=== PATIENT | female | born 1995 | race Caucasian/White ===

== ENCOUNTER 2023-11-11 13:31 | Outpatient (AMB) | payer OTHER, SELFPAY ==
--- NOTE | 2023-11-11 13:35 | MHC.OFFVIS ---
Vital Signs 11/11/23 13:42 Height 5 ft 5 in Weight 179 lb BMI 29.8 BP 110/70 Intake Visit Reasons: New patient Annual/ Do not Rs Behavior Support Specialist: Behavior Support Specialist Present (Padmini) Allergies amoxicillin Allergy (Unknown, Verified 11/11/23 13:45) Unknown Penicillins Allergy (Unknown, Verified 11/11/23 13:45) Unknown HPI Comments Details: She is a premenopausal woman presenting for new patient annual examination. Doing well with concerns: History of frequent UTIs currently taking you Uqura as a gpnv-kqv-zommpwx preventative, reports dysuria today. Concerns regarding low libido.. She tries to eat healthy and stays active with exercise. Monthly bleeding noted, has a Mirena IUD in since 2014. Has used the IUD since age 12 due to of starting Accutane. Menarche age [age], she does not remember her cycle history from that timeframe. Desires to have it removed today. Uses natural family planning w/a Oura ring. She denies vaginal itching and irritation. STI screening offered; she accepts. Denies family history of ovarian or colon cancer. FH breast cancer. Last pap smear 2019, negative. PFS Medical History ADHD Depression with anxiety Seasonal allergies Family History Paternal Grandmother History of breast cancer Social History Alcohol intake: current Alcohol intake frequency: holidays/special occasions only Patient Tobacco Use Status: Never used Tobacco Sexual orientation: Straight/Heterosexual Gender identity: Female Female Reproductive History Menstrual Age of Menarche: 9 Total pregnancies: 0 Date of last pap smear: 05/18/19 (neg) Review of Systems Const All systems reviewed & are unremarkable except as noted in HPI and below Reports as per HPI Eyes Reports no additional complaints ENT Reports no additional complaints Card Reports no additional complaints Resp Reports no additional complaints GI Reports as per HPI and Reports no additional complaints Reports as per HPI Musc Reports no additional complaints Skin/Breast Reports as per HPI Neuro Reports no additional complaints Psych Reports no additional complaints Endo Reports no additional complaints Franky/Lymph Reports no additional complaints Aller/Immun Reports no additional complaints Physical Exam Vital Signs: Last Vital Signs BP 110/70 11/11/23 13:42 BMI result Body Mass Index 29.8 Const General: cooperative, healthy appearing, no acute distress, well developed and alert Orientation/consciousness: patient oriented x3 HEENT Head: Yes normal to inspection Eyes General: appearance normal, both eyes and all related structures Neck Neck: Yes normal visual inspection Thyroid: Thyroid normal Chest Chest palpation & inspection: normal inspection of the chest and other (no puckering, dimpling, peau de orange, retraction, discharge, masses) Breast/axilla inspection: normal inspection of the breasts Breast/axilla palpation: normal palpation of the breasts Resp Effort & Inspection: normal respiratory effort GI Inspection: Yes normal to inspection Palpation (GI): Soft to palpation Rectal Exam - Female: deferred General: Yes bladder normal to palpation External Female Exam: normal external appearance and normal appearance of the urethra Speculum Exam - Vagina: normal appearance of the vagina, normal palpation, normal vaginal discharge and vaginal bleeding Speculum Exam - Cervix: normal appearance of the cervix, normal palpation and Other cervical findings present (IUD strings at the os) Bimanual exam- vagina & uterus: normal bimanual exam, normal palpation, uterine size normal, bladder normal to palpation, normal palpation and non-tender Bimanual Exam- Adnexa, other: no masses OB/external & speculum: vaginal bleeding Skin General skin exam: no rashes or lesions noted Rashes: no rashes Neuro General: patient oriented x3 Cognition (Neuro): normal cognition Extrem General: Yes normal to inspection Psych Attitude: cooperative Thought process: Normal thought process present Office Procedures Contraception Insert/Removal Details Details: She was counseled regarding the removal of her IUD. She was consented for the procedure along with anticipatory guidance for the removal and the consents form was signed. She desires to proceed with the IUD removal. She was consented for the IUD insertion and has signed the consent form. All questions were answered. IUD Removal Procedure: The patient was placed in the dorsal lithotomy position. A speculum was inserted vaginally and the cervix and strings were visualized at the os. A ring forcep was utilized, and the patient was asked to give a deep cough while the strings were grasped and gently tugged at the same time, removing the IUD device intact. Minimal bleeding was observed. All of the equipment was removed. The patient tolerated the procedure well and left the office in good condition. IUD Removal Information: You may have light bleeding for several days, tapering off to a brown or pink color. Mild cramping after removal is common. If not allergic, you may take an over the counter mild analgesic for the discomfort, such as Tylenol or Advil (use dosing and frequency per the manufacturers recommendations). Call the office if you experience: fever (over 100.4), flu like symptoms, abdominal or pelvic pain, foul smelling discharge or heavy bleeding. If not planning for a future , another form of control is recommended. Use of condoms for prevention of is also recommended, if indicated. This note is constructed using voice recognition software. While every effort has been made to ensure accuracy, accounts receivable collector errors may have been included. [id number] - Removal Results AMB Test Urine AMB Test Urine Negative Last Edit by Luz Maria Palumbo [facility] on 11/11/23 14:44 AMB Urinalysis, Automated UA Leukoctes 0 Jerry/uL Last Edit by Luz Maria Palumbo Esther on 11/11/23 14:44 UA Nitrite Positive Last Edit by Luz Maria Palumbo [facility] on 11/11/23 14:44 UA Urobilinogen 0 mg/dL Last Edit by Luz Maria Palumbo [facility] on 11/11/23 14:44 UA Protein 0 mg/dL Last Edit by Luz Maria Palumbo [facility] on 11/11/23 14:44 UA pH 5.5 Last Edit by Luz Maria Palumbo [facility] on 11/11/23 14:44 UA Blood 1 Owen/uL Last Edit by Luz Maria Palumbo [facility] on 11/11/23 14:44 UA Specific Goodells 1.020 Last Edit by Luz Maria Palumbo [facility] on 11/11/23 14:44 UA Ketone Positive Last Edit by Luz Maria Palumbo Esther on 11/11/23 14:44 UA Bilirubin 0 mg/dL Last Edit by Luz Maria Palumbo [facility] on 11/11/23 14:44 UA Glucose 0 mg/dL Last Edit by Luz Maria Palumbo [facility] on 11/11/23 14:44 Results Reviewed Results Reviewed: Laboratory Last Values Urine pH (Auto) 5.5 11/11/23 14:40 Specific Goodells (Auto) 1.020 11/11/23 14:40 Urine Protein (Auto) 0 mg/dL 11/11/23 14:40 Glucose (UA)(Auto) 0 mg/dL 11/11/23 14:40 Urine Ketones (Auto) Positive 11/11/23 14:40 Urine Blood (Auto) 1 Owen/uL 11/11/23 14:40 Urine Nitrite (Auto) Positive 11/11/23 14:40 Urine Bilirubin (Auto) 0 mg/dL 11/11/23 14:40 Urine Urobilinogen (Auto) 0 mg/dL 11/11/23 14:40 Leukocyte Esterase (Auto) 0 Jerry/uL 11/11/23 14:40 Tst Clinic Negative 11/11/23 14:40 Assessment & Plan Assessment & Plan (1) Encounter for well woman exam with routine gynecological exam: Code(s): Z01.419 - Encounter for gynecological examination (general) (routine) without abnormal findings Category: Medical (2) Encounter for IUD removal: Code(s): Z30.432 - Encounter for removal of intrauterine contraceptive device (3) Dysuria: Code(s): R30.0 - Dysuria Plan Discussed: Current recommendations for pap smears per ASCCP guidelines. Breast awareness and periodic breast exams. Maintain a healthy lifestyle including a well balanced diet and routine exercise. Reviewed control options including nonhormonal. She would like to monitor her cycles for now and may consider another IUD in the future. Positive nitrates, counseled about UTI, encouraged increase fluids, avoid bladder irritants, Rx sent in for Macrobid, wait for urine culture for plan of care. See notes for IUD removal. Schedule return to the office visit to discuss low libido concerns. Patient verbalizes understanding and agrees to the plan of care. She was given opportunity to ask questions and all questions were answered to the best of my ability. RTO in one year for annual pay station department manager examination. This note is constructed using voice recognition software. While every effort has been made to ensure accuracy, accounts receivable collector errors may have been included. Orders: Orders Bacterial Vaginosis Panel Today R10.2 - Pelvic and perineal pain PAP + HPV E6/E7 rfx 18/45 Today Z01.419 - Encounter for gynecological examination (general) (routine) without abnormal findings AMB HCG Urine Test Today Z32.02 - Encounter for test, result negative AMB Urinalysis Automated Today R30.0 - Dysuria Urine Culture Today R30.0 - Dysuria CT NG by PCR Today R10.2 - Pelvic and perineal pain Medications: New nitrofurantoin monohyd/m-cryst 100 mg (Macrobid) must administer with a meal/food 100 mg PO BID PRN 10 caps 0RF UTI 5 days Coding Level of Care Code New Pt Prev Care 18-39yr(19929 Diagnoses Encounter for well woman exam with routine gynecological exam Z01.419 Encounter for IUD removal Z30.432 Dysuria R30.0 CPT Codes Details - Contraception: 44186 - Removal ([id number]) Comment Add modifier for IUD removal
[2023-11-11 13:42] VITALS: BP 110/70; BMI 29.8
== END 2023-11-11 14:49 | disposition home or self-care (01) ==
PROVIDERS: Visit Provider Advanced Practice Midwife
DX: Z01.419 Encounter for gynecological examination (general) (routine) without abnormal findings (principal); Z30.432 Encounter for removal of intrauterine contraceptive device; R30.0 Dysuria; Z32.02 Encounter for pregnancy test, result negative
CPT/HCPCS: 58301; 99385

== ENCOUNTER 2023-11-11 13:31 | Outpatient (REF) | payer OTHER, SELFPAY ==
[2023-11-12 04:16] LABS: CT PCR NOT DETECTED (Not Detect.); NG PCR NOT DETECTED (Not Detect.)
[2023-11-12 09:50] LABS: Bacterial Vaginosis PCR POSITIVE (Negative); Candida Group PCR NOT DETECTED (Not Detect); Candida glab krusei PCR NOT DETECTED (Not Detect); Trichomonas vaginalis PCR NOT DETECTED (Not Detect)
[2023-11-13 15:33] LABS: HPV mRNA E6/E7 Not Detected (Not Detected)
== END 2023-11-11 13:32 | disposition home or self-care (01) ==
LOC: HO.LAB 13:31
PROVIDERS: Visit Provider Advanced Practice Midwife
DX: Z01.419 Encounter for gynecological examination (general) (routine) without abnormal findings (principal); Z11.51 Encounter for screening for human papillomavirus (HPV); R10.2 Pelvic and perineal pain; R30.0 Dysuria
CPT/HCPCS: 0352U; 36415; 58301; 81003; 81025; 87086; 87088; 87186; 87491; 87591; 87624; 88175

== ENCOUNTER 2023-11-11 14:40 | Outpatient (REF) | payer OTHER, SELFPAY | END 2023-11-11 14:41 | disposition home or self-care (01) | LOC: HO.LNP 14:40 | PROVIDERS: Visit Provider Advanced Practice Midwife | DX: Z13.89 Encounter for screening for other disorder (principal) ==

== ENCOUNTER 2024-11-16 12:59 | Outpatient (AMB) | payer OTHER, SELFPAY ==
[2024-11-16 13:04] VITALS: BP 108/66; BMI 29.0
--- NOTE | 2024-11-16 13:04 | MHC.OFFVIS ---
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 Information Interpreted: non-clinical & clinical Hospice Consultant: Hospice Consultant Present (rich) Accompanied by: Self / Same As Patient Allergies amoxicillin Allergy (Unknown, Verified 11/16/24 13:07) Unknown Penicillins Allergy (Unknown, Verified 11/16/24 13:07) Unknown Medication List - Last Reconciled 11/16/24 by Myra Hernandez LPN dextroamphetamine sulfate 5 mg PO BID escitalopram oxalate 20 mg PO DAILY levocetirizine 5 mg PO DAILY lorazepam 0.5 mg PO BID PRN montelukast 10 mg PO BEDTIME Is last menstrual period known: Yes Last menstrual period: 11/09/24 Post menopausal: No Patient : No Do you need a note to return to daycare/school/sports/work: No HPI Comments Details: Patient is a premenopausal woman presenting for annual examination. Transportation Engineering Technician concerns: none. Her wedding is next month. Regular monthly menses, spaced up to 40d, most are 26-28d. Currently is sexually active, uses condoms. She denies vaginal itching or irritation. STI screening offered; she declines. She tries to eat healthy and stays active with exercise. FH colon cancer. Last pap smear 2023, negative. PFS Medical History ADHD Depression with anxiety Seasonal allergies Family History Paternal Grandmother History of breast cancer Social History Household Members: Significant Other Housing: House Alcohol intake: current Alcohol intake frequency: holidays/special occasions only Patient Tobacco Use Status: Never used Tobacco Sexual orientation: Straight/Heterosexual Gender identity: Female Female Reproductive History Menstrual Age of Menarche: 9 Date of last menstrual period: 11/09/24 control method: condoms Total pregnancies: 0 Number of Living Children: 0 Date of last pap smear: 11/17/19 History of abnormal pap smear: No History of STI: No History of abnormal mammogram: No Review of Systems Const All systems reviewed & are unremarkable except as noted in HPI and below Reports as per HPI Eyes Reports no additional complaints ENT Reports no additional complaints Card Reports no additional complaints Resp Reports no additional complaints GI Reports as per HPI and Reports no additional complaints Reports as per HPI Musc Reports no additional complaints Skin/Breast Reports as per HPI Neuro Reports no additional complaints Psych Reports no additional complaints Endo Reports no additional complaints Franky/Lymph Reports no additional complaints Aller/Immun Reports no additional complaints Physical Exam Vital Signs: Last Vital Signs BP 108/66 11/16/24 13:04 BMI result Body Mass Index 29.0 Const General: cooperative, healthy appearing, no acute distress, well developed and alert Orientation/consciousness: patient oriented x3 HEENT Head: Yes normal to inspection Eyes General: appearance normal, both eyes and all related structures Neck Neck: Yes normal visual inspection Thyroid: Thyroid normal Chest Chest palpation & inspection: normal inspection of the chest and other (no puckering, dimpling, peau de orange, retraction, discharge, masses) Breast/axilla inspection: normal inspection of the breasts Breast/axilla palpation: normal palpation of the breasts Resp Effort & Inspection: normal respiratory effort GI Inspection: Yes normal to inspection Palpation (GI): Soft to palpation Rectal Exam - Female: deferred General: Yes bladder normal to palpation External Female Exam: normal external appearance and normal appearance of the urethra Speculum Exam - Vagina: normal appearance of the vagina, normal palpation and normal vaginal discharge Speculum Exam - Cervix: normal appearance of the cervix and normal palpation Bimanual exam- vagina & uterus: normal bimanual exam, normal palpation, uterine size normal, bladder normal to palpation, normal palpation and non-tender Bimanual Exam- Adnexa, other: no masses Skin General skin exam: no rashes or lesions noted Rashes: no rashes Neuro General: patient oriented x3 Cognition (Neuro): normal cognition Extrem General: Yes normal to inspection Psych Attitude: cooperative Thought process: Normal thought process present Assessment & Plan Assessment & Plan (1) Encounter for well woman exam with routine gynecological exam: Code(s): Z01.419 - Encounter for gynecological examination (general) (routine) without abnormal findings Category: Medical Plan Discussed: Current recommendations for pap smears per ASCCP guidelines. Breast awareness and periodic breast exams. Maintain a healthy lifestyle including a well balanced diet and routine exercise. Consider starting multivitamins with folic acid for the prevention of neural tube defects. If late for menses do a home test if positive report to the hospital for care. Patient verbalizes understanding and agrees to the plan of care. She was given opportunity to ask questions and all questions were answered to the best of my ability. 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 This note is constructed using voice recognition software. While every effort has been made to ensure accuracy, vice president residential solar sales errors may have been included. Coding Level of Care Code Est Pt Prev Care 18-39y(63682) Diagnoses Encounter for well woman exam with routine gynecological exam Z01.419
--- OUTSIDE RECORDS SUMMARY | 2024-11-16 13:34 | XMS_ITS | Clinical Summary ---
Author Organization [facility] ity Address [address] [place] [address] Care Team Providers Care Surgical Garment Assembly Supervisor Name Role Phone Renaldo Michael MD Primary Care Provider Surgical History Surgery Date Site/Laterality Comments OTHER SURGICAL HISTORY PROCEDURE: DENIES PREVIOUS SURGERY Family History Medical History Relation Name Comments Diabetes Maternal Grandfather Breast cancer Paternal Grandmother Ovarian cancer Neg Hx Uterine cancer Neg Hx Relation Name Status Comments Maternal Grandfather Paternal Grandmother Social History Tobacco Use Types Packs/Day Years Used Date Smoking Tobacco: Never Smokeless Tobacco: Never Alcohol Use Standard Drinks/Week Comments Yes 0 (1 standard drink = 0.6 oz pur e alcohol) Comments Unknown Sex and Gender Information Value Date Recorded Sex Assigned at Not on file Legal Sex Female 10:01 AM EST Gender Identity Not on file Sexual Orientation Not on file Obstetrics History Plan of Treatment Health Maintenance Due Date Last Done Comments DTaP,Tdap,and Td Vaccines (1 - Tdap) 2012 Hepatitis B Vaccines (1 of 3 - 19+ 3-dose series) 2012 Cervical Cancer Screening: P ap Smear 05/16/2022 05/16/2019 COVID-19 Vaccine (1 - 2023-2 5 season) 2023 Depression Screening 04/13/2024 Influenza Vaccine (#1) 2024 HIB Vaccines Aged Out No longer eligi ble based on patient's age to complete this topic HPV Vaccines Aged Out No longer eligi ble based on patient's age to complete this topic Hepatitis A Vaccines Aged Out No long er eligible based on patient's age to complete this topic IPV Vaccines Aged Out No longer eligi ble based on patient's age to complete this topic MMR Vaccines Aged Out No longer eligi ble based on patient's age to complete this topic Meningococcal ACWY Vaccine Aged Out N o longer eligible based on patient's age to complete this topic Meningococcal B Vaccine Aged Out No l onger eligible based on patient's age to complete this topic Pneumococcal Vaccine: Pediat rics (0 to 5 Years) and At-Risk Patients (6 to 49 Years) Aged Out No longer eligi ble based on patient's age to complete this topic RSV Immunization Patients Un amalia 20 months Aged Out No longer eligible b ased on patient's age to complete this topic Varicella Vaccines Aged Out No longer eligible based on patient's age to complete this topic Procedures Procedure Name Priority Date/Time Associated Diagnosis Comments PAP SMEAR Routine 05/16/2019 from Last 3 Months or Most Recently Relevant to Health Maintenance Results * Pap smear (05/16/2019) 05/16/2019 Narrative HISTORICAL TESTING LAB RESULTING AGENCY - 05/18/2019 1:56 PM EST [id number] THINPREP PAP, IMAGED: NEGATIVE FOR SQUAMOUS INTRAEPITHELIAL LESION AND MALIGNANCY . TAVIA PIERRE(ASCP) (CASE ELECTRONICALLY SIGNED 05 18 2019) ADEQUACY: SATISFACTORY ENDOCERVICAL/TRANSFORMATION ZONE COMPONENT PRESENT. SOURCE: THINPREP PAP HPV IF ASCUS, CERVICAL, IMAGED CLINICAL INFORMATION: HPV IF DIAGNOSIS OF ASCUS. NO LMP RECORDED, PATIENT IS NOT CURRENTLY HAVING PERIODS DUE TO IUD, [Z12.4, Z01.419] Shirley CHAVEZ LAB CYTOLOGY ORDERABLES Final Result HISTORICAL TESTING LAB RESULTING AGENCY from Last 3 Months or Most Recently Relevant to Health Maintenance Care Teams Surgical Garment Assembly Supervisor Relationship Specialty Start Date End Date Renaldo Michael MD [address] [place] [phone] PCP - General Internal Medicine 07/21/13
--- OUTSIDE RECORDS SUMMARY | 2024-11-16 13:34 | XMS_ITS | Clinical Summary ---
Author Organization [facility] Address [address] [place] [address] Phone Care Team Providers Care Medical Services Manager Name Role Phone Rafia Ro Primary Care Provider Tawanda Simons MD Unavailable [phone] Allergies Active Allergy Reactions Criticality Noted Date Comments Amoxicillin 02/21/2021 Fontanelle And Derivatives Rash Low 06/03/2021 Penicillins 02/21/2021 Sulfa (Sulfonamide Antibiotics) 02/11 Tomato Rash Low 08/30/2013 Medications dextroamphetam ine-amphetamin e (ADDERALL) 5 mg Tab Take 1 tablet by mouth daily. Active montelukast (SINGULAIR) 10 mg tablet Take 10 mg by mouth nightly at bedtime. at bedtime. 02/14/20 21 Active levonorgestrel (MIRENA UTRN) by Intrauterine route. Active levocetirizine (XYZAL) 5 MG tablet daily. Active methylphenidat e HCl (RITALIN) 5 MG tablet methylphenidate 5 mg tablet Active MULTIVITAMIN ORAL daily. Active escitalopram oxalate (LEXAPRO) 5 MG tablet TAKE 1 TABLET BY MOUTH EVERY DAY DIRECTED FOR ANXIETY Active ipratropium (ATROVENT) 42 mcg (0.06 %) nasal spray 2 sprays in each nostril twice a day 06/06/19 25 Active naproxen (NAPROSYN) 500 MG tablet Take 1 tablet (500 mg total) by mouth 2 (two) times a day with meals. 20 tablet 09/14/19 25 Active cyclobenzaprin e (FLEXERIL) 10 MG tablet Take 1 tablet (10 mg total) by mouth 2 (two) times a day as needed (neck pain). 20 tablet 09/14/19 25 Active Active Problems Problem Noted Date Diagnosed Date Generalized anxiety disorder 06/15/2024 Moderate persistent asthma 04/17/2023 Hyperlipidemia 01/30/2022 Recurrent major depressive episodes, moderate Abnormal weight loss 08/30/2013 Acne 08/30/2013 Allergic rhinitis 08/30/2013 Attention deficit hyperactivity disorder 014 Gastroesophageal reflux disease 08/30/2013 Irregular periods 11/23/2008 Overview (09/13/2024): RECORDED 11/23/2008 9:15AM BY JUAN GONZALEZ, JABARI/ADDENDUM Encounters Date Type Department Care Team Description 09/13/2024 8:50 AM EDT Office Visit [facility] [address] [address] Patience Tony, PUBLICATION SPECIALIST Strain of cervical portion of right trapezius muscle (Primary Dx) from Last 3 Months Immunizations Immunization Administration Dates Next Due DTaP 03/13/1995, 4,1993,10/11 [id number] FORMULATION 05/14/2009 HPV,quadrivalent 04/15/2007,12/07/2006, 7 Hepatitis B 06/11/1994,1993,1993 Hib,HbOC 12/12/1994 INFLUENZA, SPLIT VIRUS, TRIV ALENT W/ PRESERVATIVE IM 12/09/2011,02/17/2011 IPV 12/12/1994,1993,1993 Influenza Quadrivalent Prese rvative Free IM 01/10/2021,12/20/2019,02/02/2018 MMR 09/19/2003,12/19/1994 Meningococcal MPSV4 09/30/2005 Tdap 01/10/2021,10/11/2007 Varicella 12/09/2011,09/26/2011 Social History Tobacco Use Types Packs/Day Years Used Date Smoking Tobacco: Never Smokeless Tobacco: Never Education Answer Date Recorded Are you interested in more education? Not on stacey e 08/08/2022 Are you concerned about learning? Not on file 08/08/2022 No 08/08/2022 No 08/08/2022 Digital Access Answer Date Recorded No 09/05/2022 No 09/05/2022 Reliable internet access at home? Not on file 09/05/2022 Device with a working camera? Not on file Comments Unknown Sex and Gender Information Value Date Recorded Sex Assigned at Not on file Legal Sex Female 8:55 PM EDT Gender Identity Not on file Sexual Orientation Not on file Last Filed Vital Signs Vital Sign Reading Time Taken Comments Blood Pressure 105/73 09/13/2024 9:37 AM EDT Pulse 63 09/13/2024 9:37 AM EDT Temperature 36.9 C (98.4 F) 09/13/2024 9:37 AM EDT Respiratory Rate 17 09/13/2024 9:37 AM EDT Oxygen Saturation 98% 09/13/2024 9:37 AM EDT Inhaled Oxygen Concentration - - Weight 74.8 kg (165 lb) 06/03/2021 11:23 AM EST Height 165.1 cm (5' 5 ) 06/03/2021 11:23 AM EST Body Mass Index 27.46 06/03/2021 11:23 AM EST Plan of Treatment Health Maintenance Due Date Last Done Comments DEPRESSION SCREENING 2005 HEPATITIS C SCREENING 09/09/2011 HIV ONE-TIME SCREENING (18-6 5 YEARS) 09/09/2011 PNEUMOCOCCAL VACCINES (0-49 years) (1 of 2 - PCV) 2012 PAP SMEAR 05/16/2022 05/16/2019 COVID-19 VACCINE (4 - 2023-2 5 season) 2023 03/31/2021, 08/14/2020, 07/17/2020 Adult Td,Tdap Booster 01/10/2031 01/10/2021 , 10/11/2007 HIB VACCINES Completed 12/12/1994 MENINGOCOCCAL VACCINES (ACWY) Aged Out 09/30/2005 No longer eligible based on patient's age to complete this topic SMOKING STATUS SCREENING (On ce After 26 Yrs) Completed 09/13/2024 HEPATITIS A VACCINES Aged Out No long er eligible based on patient's age to complete this topic MENINGOCOCCAL VACCINES (B) Aged Out N o longer eligible based on patient's age to complete this topic Medical Devices Not on file Insurance CIGNA TPA CIGNA TPA CIGNA TPA [facility] CIGNA TPA [facility] Address: [place] [address] [place] [address] Care Teams Medical Services Manager Relationship Specialty Start Date End Date Rafia Ro PA [address] [address] PCP - General 06/03/21 Tawanda Simons MD [address] [phone] Insurance Assigned Provider Pediatrics 07/25/22 Additional Source Comments The information contained in this document represents components of the legal health record. It is not the complete legal health record.[facility]
== END 2024-11-16 13:43 | disposition home or self-care (01) ==
LOC: HO.HWS 13:00
PROVIDERS: Visit Provider Advanced Practice Midwife
DX: Z01.419 Encounter for gynecological examination (general) (routine) without abnormal findings (principal)
CPT/HCPCS: 99395; 99459